=== PATIENT | female | born 1955 | race Caucasian/White ===

== ENCOUNTER 2024-11-03 22:02 | Observation (INO) ==
[2024-11-03] MEDS ORDERED: IOPAMIDOL 100 ML BOTTLE IV ONE (22:03)
[2024-11-03] MEDS: 0.9 % SODIUM CHLORIDE 1,000 ML IV ONE (22:16)
[2024-11-03 22:28] LABS: Basophils # (Auto) 0.01 K/mcL (0.00-0.30); Basophils % (Auto) 0.2 % (0.0-2.0); Eosinophils # (Auto) 0.08 K/mcL (0.00-0.70); Eosinophils % (Auto) 1.6 % (0.0-7.0); Hematocrit 42.5 % (34.1-44.9); Hemoglobin 14.2 g/dL (11.2-15.7); Lymphocytes # (Auto) 1.05 K/mcL (1.50-4.80); Lymphocytes % (Auto) 21.2 % (15.5-49.0); Mean Corpuscular HGB Conc 33.4 g/dL (31.0-36.0); Mean Platelet Volume 9.3 fL (8.8-12.5); Monocytes # (Auto) 0.55 K/mcL (0.10-0.90); Monocytes % (Auto) 11.1 % (1.0-12.0); Neutrophils % (Auto) 65.5 % (38.0-78.0); Platelet Count 265 K/mcL (140-440); RBC 4.72 M/mcL (3.59-5.38); Red Cell Distribution Width 13.9 % (11.5-14.5)
[2024-11-03] MEDS: ONDANSETRON 4 MG/2 ML VIAL IV ONE (22:44)
[2024-11-03 22:45] LABS: INR 0.9 (0.9-1.1); Partial Thromboplastin Time 22.3 sec (20.0-37.0); Prothrombin Time 12.9 sec (11.9-14.5)
[2024-11-03] MEDS: ACETAMINOPHEN 1,000 MG/100 ML BAG IV ONE (22:45)
[2024-11-03 23:14] LABS: ALT/SGPT 12 U/L (<40); AST/SGOT 21 U/L (<32); Albumin/Globulin Ratio 1.5 (1.0-2.3); Alkaline Phosphatase 98 U/L (39-117); Bilirubin,Total 0.6 mg/dL (0.1-1.0); Blood Urea Nitrogen 15 mg/dL (8-23); Calcium 8.7 mg/dL (8.6-10.4); Carbon Dioxide 20 mmol/L (22-30); Chloride 103 mmol/L (96-108); Globulin 2.7 gm/dL (2.2-3.7); Glomerular Filtration Rate 74; Glucose 142 mg/dL (70-105); Potassium 3.5 mmol/L (3.3-5.1); Sodium 136 mmol/L (133-145); Thyroid Stimulating Hormone 1.19 uIU/mL (0.27-5.01)
[2024-11-03] MEDS: diphenhydrAMINE 50 MG/ML VIAL IV ONE (23:17)
[2024-11-03] MEDS: KETOROLAC 15 MG/ML VIAL IV ONE (23:18)
[2024-11-03] MEDS: METOCLOPRAMIDE 10 MG/2 ML VIAL IV ONE (23:30)
[2024-11-04] MEDS ORDERED: GADOBENATE DIMEGLUMINE 15 ML/VIAL IV ONE (01:30)
[2024-11-04] MEDS: ONDANSETRON 4 MG/2 ML VIAL IV ONE (01:58)
[2024-11-04] MEDS: 0.9 % SODIUM CHLORIDE 1,000 ML IV SCH (01:58)
[2024-11-04 02:30] LABS: Appearance,Urine Clear (Clear); Bilirubin,Urine Negative (Negative); Color,Urine Yellow; Glucose,Urine (UA) Negative (Negative); Ketones,Urine Trace mg/dL (Negative); Leukocyte Esterase,Urine Negative /uL (Negative); Mucus,Urine FEW /hpf; Nitrate,Urine Positive (Negative); Protein,Urine Trace mg/dL (Negative); Specific Gravity,Urine 1.015 (1.000-1.035); Urine Amorphous Crystals FEW /hpf; Urine Blood Small ery/mcL (Negative); Urine Budding Yeast FEW /hpf; Urine Hyaline Cast 1 /lph (0-2); Urine RBC 1 /hpf (0-3); Urine Squamous Epithelial Cell 3 /hpf (0-4); Urine WBC 5 /hpf (0-4); Urobilinogen,Urine Normal
[2024-11-04] MEDS: KETOROLAC 15 MG/ML VIAL IV SCH (05:04)
[2024-11-04] MEDS: ACETAMINOPHEN 500 MG TABLET PO PRN (08:43)
[2024-11-04] MEDS: ONDANSETRON 4 MG/2 ML VIAL ONE ×2 (16:56→19:38)
[2024-11-04] MEDS ORDERED: BUTALB/ACETAMINOPHEN/CAFFEINE 1 TABLET PO PRN (17:47)
[2024-11-04] MEDS ORDERED: ONDANSETRON 4 MG ODT TABLET SL PRN (18:40)
[2024-11-04] MEDS: ONDANSETRON 4 MG/2 ML VIAL IV PRN (19:11)
[2024-11-04] MEDS: diphenhydrAMINE 25 MG CAPSULE PO PRN (19:50)
[2024-11-04] MEDS: METOCLOPRAMIDE 10 MG/2 ML VIAL IV PRN (19:51)
[2024-11-04] MEDS: METOCLOPRAMIDE 10 MG/2 ML VIAL ONE (19:56)
[2024-11-04] MEDS: diphenhydrAMINE 25 MG CAPSULE ONE (19:56)
[2024-11-05 08:38] VITALS: TEMP 96.2; O2SAT 94
== END 2024-11-05 10:32 | disposition home or self-care (01) ==
LOC: MEDSUR 22:02 → ED 22:02 → MEDSUR 11-04 01:54
PROVIDERS: ADMIT Internal Medicine; ATTEND Internal Medicine